=== PATIENT | female | born 1975 | race American Indian/Alaskan Native ===

== ENCOUNTER 2020-01-22 10:09 | Emergency (ER) | payer MEDICARE ==
[2020-01-22 10:28] VITALS: BP 139/94
--- NOTE | 2020-01-22 12:10 | Emergency Department Report ---
ED Fall HPI - General Chief Complaint: Fall Stated Complaint: RT ARM PAIN Time Seen by Provider: 01/22/20 12:04 Source: patient Mode of arrival: Wheelchair - History of Present Illness MD Complaint: fall -: Sudden Fall From: standing When Fall Occurred: 1-[address] Fall Occurred: other ([employer] [place] front of store [place] the sidewalk [place]) Loss of Consciousness: none Prolonged Down Time?: no Symptoms Prior to Fall: none Location - Extremities: Right: Hand, Thigh, Knee Severity: moderate Quality: dull Context: tripped/slipped - Related Data Previous Rx's Medication Instructions Recorded Last Taken Type Ketorolac [Toradol] 10 mg PO Q6H PRN #10 tablet 01/22/20 Unknown Rx methOCARBAMOL [Robaxin TAB] 500 mg PO Q6H #20 tablet 01/22/20 Unknown Rx Allergies Allergy/AdvReac Type Severity Reaction Status Date / Time No Known Allergies Allergy Unverified 01/22/20 10:21 ED Review of Systems ROS: Stated complaint: RT ARM PAIN Other details as noted in HPI ED Past Medical Hx - Past Medical History Previous Medical History?: Yes Hx Psychiatric Treatment: Yes (Bi polar/manic depression) - Surgical History Past Surgical History?: No - Medications Home Medications: Home Medications Medication Instructions Recorded Confirmed Last Taken Type Ketorolac [Toradol] 10 mg PO Q6H PRN #10 tablet 01/22/20 Unknown Rx methOCARBAMOL [Robaxin TAB] 500 mg PO Q6H #20 tablet 01/22/20 Unknown Rx ED Physical Exam - General Limitations: No Limitations ED Course Vital Signs 01/22/20 10:23 Temperature 98.1 F Pulse Rate 98 H Respiratory 24 Rate Blood Pressure 139/94 O2 Sat by Pulse 100 Oximetry ED Medical Decision Making - Radiology Data Radiology results: report reviewed [facility] [address] [place] [address] XRay Report Signed Patient: BLANE MONTOYA MR#: [id number] : 1975 Acct:[id number] Age/Sex: 44 / F ADM Date: 01/22/20 Loc: ED Attending Dr: Ordering Physician: KIERA HOLLIDAY Date of Service: 01/22/20 Procedure(s): XR knee 3V RT Accession Number(s): [id number] cc: KIERA HOLLIDAY Fluoro Time In Minutes: RIGHT KNEE 3 VIEWS INDICATION / CLINICAL INFORMATION: fall apin to knee. COMPARISON: None available. FINDINGS: No significant skeletal abnormality Signer Name: Jasvir Wild MD FACR Signed: 01/22/2020 1:12 PM Workstation Name: [id number] Transcribed By: MS Dictated By: Jasvir Wild MD Electronically Authenticated By: Jasvir Wild MD Signed Date/Time: 01/22/201311 DD/ 11 TD/TT: [address] [address] XRay Report Signed Patient: BLANE MONTOYA MR#: [id number] : 1975 Acct:[id number] Age/Sex: 44 / F ADM Date: 01/22/20 Loc: ED Attending Dr: Ordering Physician: KIERA HOLLIDAY Date of Service: 01/22/20 Procedure(s): XR forearm RT Accession Number(s): [id number] cc: KIERA HOLLIDAY Fluoro Time In Minutes: RIGHT FOREARM 2 VIEWS INDICATION / CLINICAL INFORMATION: fall pain to forearm. COMPARISON: None available. FINDINGS: Calcification is seen adjacent to the proximal radius and in the region of the elbow joint. No other significant skeletal abnormality Signer Name: Jasvir Wild MD FACR Signed: 01/22/2020 1:12 PM Workstation Name: [id number] Transcribed By: MS Dictated By: Jasvir Wild MD Electronically Authenticated By: Jasvir Wild MD Signed Date/Time: 01/22/201311 DD/ 10 TD/TT: Print Report Referring Physician:KYLE GARZAPatient Name:BLANE MONTOYAPatient ID:[id number] of :[id number]:FemaleAccession:[id number] Date:[id number] Status:Finalized Findings [address] [address] XRay Report Signed Patient: BLANE MONTOYA MR#: [id number] : 1975 Acct:[id number] Age/Sex: 44 / F ADM Date: 01/22/20 Loc: ED Attending Dr: Ordering Physician: KIERA HOLLIDAY Date of Service: 01/22/20 Procedure(s): XR hand 3+V RT Accession Number(s): [id number] cc: KIERA HOLLIDAY Fluoro Time In Minutes: RIGHT HAND 3 VIEWS INDICATION / CLINICAL INFORMATION: fall pain to hand with swelling. COMPARISON: None available. FINDINGS: No significant skeletal abnormality Signer Name: Jasvir Wild MD FACR Signed: 01/22/2020 1:11 PM Workstation Name: [id number] Transcribed By: MS Dictated By: Jasvir Wild MD Electronically Authenticated By: Jasvir Wild MD Signed Date/Time: 01/22/201310 DD/ 10 TD/TT: [address] [address] XRay Report Signed Patient: BLANE MONTOYA MR#: [id number] : 1975 Acct:[id number] Age/Sex: 44 / F ADM Date: 01/22/20 Loc: ED Attending Dr: Ordering Physician: KIERA HOLLIDAY Date of Service: 01/22/20 Procedure(s): XR hip 2-3V RT Accession Number(s): [id number] cc: KIERA HOLLIDAY Fluoro Time In Minutes: RIGHT HIP 2 VIEWS INDICATION / CLINICAL INFORMATION: fall pain to hip. COMPARISON: None available. FINDINGS: Heterotopic calcification is seen around the right hip joint. Mild degenerative changes also present. No other significant skeletal abnormality Signer Name: Jasvir Wild MD FACR Signed: 01/22/2020 1:13 PM Workstation Name: [id number] Transcribed By: MS Dictated By: Jasvir Wild MD Electronically Authenticated By: Jasvir Wild MD Signed Date/Time: 01/22/201312 DD/ 12 TD/TT: - Medical Decision Making 44-year-old [place] female status post trip and fall at the [employer] landing onto the right side resulting in multiple contusions and very superficial abrasion to the lateral aspect of her right knee. Her x-ray showed no acute pathology. There is some nonpitting edema to her lower extremity into her right hand which may be traumatically related although she also has an arthritic which may be worsening her symptoms as well. Critical care attestation.: If time is entered above; I have spent that time in minutes in the direct care of this critically ill patient, excluding procedure time. ED Disposition Clinical Impression: Knee contusion, Contusion of hip, right, Forearm contusion Disposition: TO HOME OR SELFCARE Is pt being admited?: No Does the pt Need Aspirin: No Condition: Stable Instructions: Contusion in Adults (ED), Knee Pain (ED), RICE Therapy (ED) Prescriptions: methOCARBAMOL [Robaxin TAB] 500 mg PO Q6H #20 tablet Ketorolac [Toradol] 10 mg PO Q6H PRN #10 tablet PRN Reason: Pain Referrals: [facility] [Provider Group] - 3-5 Days
--- NOTE | 2020-01-22 13:16 | XRay Report ---
RIGHT HAND 3 VIEWS INDICATION / CLINICAL INFORMATION: fall pain to hand with swelling. COMPARISON: None available. FINDINGS: No significant skeletal abnormality Signer Name: Jasvir Wild MD FACMorenita Signed: 01/22/2020 1:11 PM Workstation Name: [id number]
--- NOTE | 2020-01-22 13:17 | XRay Report ---
RIGHT FOREARM 2 VIEWS INDICATION / CLINICAL INFORMATION: fall pain to forearm. COMPARISON: None available. FINDINGS: Calcification is seen adjacent to the proximal radius and in the region of the elbow joint. No other significant skeletal abnormality Signer Name: Jasvir Wild MD FACMorenita Signed: 01/22/2020 1:12 PM Workstation Name: [id number]
--- NOTE | 2020-01-22 13:18 | XRay Report ---
RIGHT HIP 2 VIEWS INDICATION / CLINICAL INFORMATION: fall pain to hip. COMPARISON: None available. FINDINGS: Heterotopic calcification is seen around the right hip joint. Mild degenerative changes also present. No other significant skeletal abnormality Signer Name: Jasvir Wild MD FACMorenita Signed: 01/22/2020 1:13 PM Workstation Name: [id number]
--- NOTE | 2020-01-22 13:18 | XRay Report ---
RIGHT KNEE 3 VIEWS INDICATION / CLINICAL INFORMATION: fall apin to knee. COMPARISON: None available. FINDINGS: No significant skeletal abnormality Signer Name: Jasvir Wild MD FACR Signed: 01/22/2020 1:12 PM Workstation Name: [id number]
== END 2020-01-22 15:55 | disposition home or self-care (01) ==
LOC: ED 10:09
DX: S70.01XA Contusion of right hip, initial encounter (principal); S80.01XA Contusion of right knee, initial encounter; S50.11XA Contusion of right forearm, initial encounter; F31.9 Bipolar disorder, unspecified; Z79.899 Other long term (current) drug therapy; W18.30XA Fall on same level, unspecified, initial encounter; Y93.89 Activity, other specified; Y92.89 Other specified places as the place of occurrence of the external cause; Y99.8 Other external cause status